=== PATIENT | female | born 2000 | race Caucasian/White ===

== ENCOUNTER → 2022-06-24 | Outpatient (CLI) | payer OTHER, SELFPAY ==
[2022-06-24 14:22] LABS: Absolute Lymphocyte Count 1.51 X10^3/uL (0.83-4.51); Absolute Neutrophil Count 2.7 X10^3/uL (2.0-7.7); Basophil# 0.03 X10^3/uL; Basophil% 0.7 % (0-1); Eosinophil# 0.08 X10^3/uL; Eosinophils% 1.7 % (0-5); Hematocrit 37.4 % (37-47); Hemoglobin 12.2 g/dL (12.0-15.0); Lymphocyte # 1.51 X10^3/ul (0.83-4.51); Mean Corp Hgb Conc 32.6 g/dL (32-36); Mean Corpuscular Hgb 28.1 pg (27.0-32.0); Mean Corpuscular Volume 86.2 fL (81-99); Monocyte# 0.28 X10^3/uL; Monocyte% 6.1 % (0-10); NRBC Flagged by Analyzer 0 % (0-5); Neutrophil # 2.67 X10^3/uL (2.7-7.7); Neutrophil % 58.3 % (47-70); Platelet Count 179 K/mm3 (150-450); RBC Distribution Width CV 12.1 % (11.6-14.6); RBC Distribution Width SD 38.3 fl (35.1-43.9); Red Blood Count 4.34 M/mm3 (4.2-5.4); White Blood Count 4.6 K/mm3 (4.4-11.0)
[2022-06-24 14:50] LABS: hCG Titer Quant., Serum 60 mIU/mL (1-3)
== END | disposition home or self-care (01) ==
PROVIDERS: Referring Provider Obstetrics & Gynecology; Visit Provider Obstetrics & Gynecology
DX: O02.0 Blighted ovum and nonhydatidiform mole (principal); O36.80X0 Pregnancy with inconclusive fetal viability, not applicable or unspecified
CPT/HCPCS: 36415; 84702; 85025; 86850; 86900; 86901

== ENCOUNTER 2022-06-29 10:24 | Day surgery (SDC) | payer SELFPAY, OTHER ==
[2022-06-29] VITALS (8 sets, daily range): BP systolic 84–114; BP diastolic 49–75; PULSE 52–75; RESP 16–18; TEMP 36.7–37.3; O2SAT 95–100; BMI 23.4
--- NOTE | 2022-06-29 10:35 | HP.PCM_ITS ---
History and Physical Date of Admission: 06/29/22 H&P 06/29/22 Intake Vital Signs ? 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: No Is patient in pain?: No Allergies No Known Allergies Allergy (Unverified 06/24/22 14:13) Medications lactobacillus combination no.4 3 billion cell capsule (Probiotic) 3,000 mmu cells PO DAILY 06/24/22 [History Confirmed 06/24/22] omega-3 fatty acids 1,000 mg capsule 1,000 mg PO DAILY 06/24/22 [History Confirmed 06/24/22] Is last menstrual period known: Yes Last Menstrual Period: 12/11/21 Post menopausal: No Patient : Yes : No PFSH Family History?(Updated 06/24/22 @ 14:14 by Marla Chandler) Grandmother Hypertension Social History?(Updated 06/24/22 @ 14:14 by Marla Chandler) Smoking Status:? Never smoker alcohol intake:? never substance use type:? does not use additional social history:? - Lenin HPI D&C consult, ref by bindery machine operator Luzma molar Details: BRITTNEE RODRIGUEZ is a 21 year old ? who presents for consultation about missed . She had an ultrasound at 8 weeks on 05/05 that showed a? viable IUP. On 06/20 there was a small pole and not heart tones. It was presumed that the fetus sometime between her 2 appointments. The doctor that was caring for her, Dr. Beth, did an ultrasound and was concerned about a molar . No quant was collected. The patient states that she tried taking some herbs from her yard and garden to try to induce a miscarriage spontaneously but without success. Female Reproductive History Last Menstrual Period: 12/11/21 History ? ? ? 2 ? Elective abortions ? Hx Para ? ? ? 1 ? Spontaneous abortions ? Hx # Term Pregnancies ? Ectopic pregnancies ? Hx # Pregnancies ? Multiple births ? # of living children ? ? ? 1 Past Pregnancies Del. Date Name GA/Weeks Outcome Route Bth Weight Infant Gen Labor Lgth Anesthesia Del Locatn Provider FOB 07/09/21 Elia 39 live - full term 8lbs 4oz Male ? ? 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 Last Updated by: Marla Chandler ? ? ? No issues during or delivery ROS Const ROS Unobtainable: All systems reviewed & are unremarkable except as noted in H Resp Resp: Reports system reviewed and no additional complaints, except as documented; Denies cough GI GI: Reports as per HPI Psych Psych: Reports system reviewed and no additional complaints, except as documented Exam Const General: cooperative, healthy appearing, comfortable and no acute distress Resp Effort & Inspection: normal respiratory effort General: bimanual renal exam normal bilaterally External Female Exam: normal appearance of the urethra Urethra: normal appearance of the urethra Speculum Exam - Vagina: normal appearance of the vagina Speculum Exam - Cervix: normal appearance of the cervix Bimanual Exam- Adnexa, other: normal adnexae and normal Pelvic Support: normal Other: ultrasound shows a probable subchorionic hemorrhage measuring 3 x 4 cm, no heart tones, and a small pole. No suspicion for dilated villous or molar . Skin General: no rashes or lesions noted Psych Appearance: grossly normal Speech and Movement: speech and movement normal Coding Level of Care Code Off vis,new,level 4 Diagnoses Missed ? O02.1 Assessment and Plan Assessment and Plan (1) Missed : ?Status:?Acute ? ? ? Orders: Orders Type & Screen Today O02.0 - Blighted ovum and nonhydatidiform mole ? CBC W/Diff, Automated Today O02.0 - Blighted ovum and nonhydatidiform mole ? Plan The quant level today is 60. I have explained to the patient that I have little suspicion for a molar at this time and Cytotec is still an option if they would like to try this. Surgery was also given as an option. The risks vs benefits and alternatives were all discussed in great detail. Time spent was 45 min. After a long discussion, she has decided to proceed with a d&C UPDATE- I have seen the patient and performed any clinically relevant updates to the history and physical exam. Swati Adorno
--- NOTE | 2022-06-29 10:37 | DCINST_ITS ---
Discharge Instructions Diet Discharge Diet: No restrictions Activity Discharge Activity: Return to Normal Activity, May Shower and May Take a Tub Bath (after 1 week) May resume sexual activity in: 1-2 weeks Weight Bearing Status: Weight bearing as tolerated Lifting Restrictions: none Dressing / Incision Call your doctor if you observe: Fever of 101 or Higher, Using more than 1 pad per hour, Shortness of breath and Uncontrolled pain Follow Up Care Please Follow Up With: Swati Adorno DO When: Call [phone] to schedule appointment. Test Results: Test results from this visit will be discussed in further detail at your follow- up appointment, if applicable. Discharge Plan Admission Attending Provider: Swati Adorno Primary Care Provider: GEMA ODONNELL Discharge Orders/Prescriptions Prescriptions: No Action NK Referrals / Follow Up: GEMA ODONNELL [Other] Disposition Disposition (needs filled in before D/C Order can be placed): Home, Self Care
[2022-06-29] MEDS: Lactated Ringers 1,000 ML 125 ML IV (10:45)
[2022-06-29] MEDS: Doxycycline 100 MG CAPSULE PO (11:08)
--- NOTE | 2022-06-29 12:00 | POC_PTH ---
PATIENT: BRITTNEE RODRIGUEZ [place] [facility] [id number] AGE/SX: 21/F ROOM: RE06/29/[address]: Dr. Swati Adorno DO : 2000 BED: DIS: 06/29/2022 SPEC #: [id number] RECD: 06/29/22 13:54 STATUS: [facility] [place] #: [id number] PHU: 06/29/22 12:[address]: Swati Adorno DEPT: SURGICAL PATHOLOGY RECD BY: Shaheed Stafford Tissues: Product of conception, NOS Procedures: Surgery Specimen Level IV HEADER OPERATION: Suction dilation and curettage PRE-OP DIAGNOSIS: Missed TISSUE SUBMITTED: Products of missed conception MICROSCOPIC DIAGNOSIS Endometrium, curettage: Chorionic villi, decidualized stroma and trophoblastic cells consistent with products of conception. AM:luc 07/01/2022 MICROSCOPIC DESCRIPTION Slides are reviewed. GROSS DESCRIPTION Received in fixative is one container labeled with the patient's name and designated products of conception. The specimen consists of multiple irregular fragments of cardozo tissue that in aggregate measure 7 x 5 x 0.4 cm. Robotics Mechanic portions are submitted in one cassette. / AM:luc 06/30/2022 TC:5 CPT: 92205
[2022-06-29] MEDS: Lidocaine 1% (20 ml mdv) 20 ML Vial (12:22)
--- NOTE | 2022-06-29 12:29 | PCM.OP.BLANK ---
Operative Report Date of Procedure: 06/29/22 Preoperative diagnosis: 12 weeks missed , measuring less than 5 weeks on ultrasound Postoperative diagnosis: 12 weeks missed , measuring less than 5 weeks on ultrasound, Surgery: Suction dilation and curettage Surgeon: Dr. Swati Adorno, DO Urine output: 300cc Fluids:500cc Estimated blood loss: 30cc Details of the procedure The patient was taken to the operating room and placed under MAC local anesthesia. She was prepped and draped in the normal sterile fashion the dorsal lithotomy position. Bladder was drained of clear urine and anterior lip of the cervix was grasped and the uterus sounded to 10cm. Cervix was progressively dilated to allow passage of a 9 mm suction curette. Progressive passes were made removing the retained products of conception without complication. Sharp curettage confirmed complete removal of the retained products. All instruments were removed from the vagina and excellent hemostasis was noted and the patient was taken to recovery in stable condition. Multi Select Codes Urinary/Genital Urinary/Genital CPT Codes: 81293 Surg Trtmt missed Ab 1TM
== END 2022-06-29 13:55 | disposition home or self-care (01) ==
LOC: SDC 10:28 → AC 10:37
PROVIDERS: Referring Provider Obstetrics & Gynecology; Visit Provider Obstetrics & Gynecology
PROC: (CPT 59820; principal; 2022-06-29 11:45)
DX: O03.4 Incomplete spontaneous abortion without complication (principal)
CPT/HCPCS: 59820; 01965; 86850; 86900; 86901; 88305; J7120; J2405